=== PATIENT | female | born 1975 | race American Indian/Alaskan Native ===

== ENCOUNTER 2021-10-28 09:47 | Emergency (ER) | payer SELFPAY ==
[2021-10-28 09:53] VITALS: BP 168/67
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
[2021-10-28 11:43] LABS: Bacteria,Urine 1+ /HPF (Negative); Bilirubin,Urine NEG (Negative); Blood,Urine SM (Negative); Color,Urine Straw (Yellow); Protein,Urine <15 mg/dL mg/dL (Negative); Urobilinogen,Urine < 2.0 mg/dL (<2.0)
[2021-10-28] MEDS ORDERED: HYDROcodone/ACETAMINOPHEN 5-325 MG TAB PO ONE (11:50)
[2021-10-28 12:02] LABS: Basophils % (Auto) 0.8 % (0.0-1.8); Eosinophils # (Auto) 0.3 K/mm3 (0.0-0.4); Hematocrit 35.3 % (30.3-42.9); Hemoglobin 11.1 gm/dl (10.1-14.3); Lymphocytes % (Auto) 35.3 % (13.4-35.0); Mean Corpuscular HGB Conc 31 % (30-34); Mean Corpuscular Volume 88 fl (79-97); Monocytes # (Auto) 0.6 K/mm3 (0.0-0.8); Monocytes % (Auto) 10.9 % (0.0-7.3); Platelet Count 271 K/mm3 (140-440); Red Cell Distribution Width 19.3 % (13.2-15.2)
[2021-10-28 12:22] LABS: Alanine Aminotransferase 16 units/L (7-56); Albumin 3.8 g/dL (3.9-5); Blood Urea Nitrogen 14 mg/dL (7-17); Calcium 9.2 mg/dL (8.4-10.2); Hemolysis Index 2
[2021-10-28 12:28] LABS: BUN/Creatinine Ratio 20
== END 2021-10-28 13:00 | disposition home or self-care (01) ==
LOC: ED 09:47
DX: R20.2 Paresthesia of skin (principal); N39.0 Urinary tract infection, site not specified; M54.50 Low back pain, unspecified; J45.909 Unspecified asthma, uncomplicated; Z90.49 Acquired absence of other specified parts of digestive tract
CPT/HCPCS: 36415; 80053; 81001; 84703; 85025; 99283

== ENCOUNTER 2022-05-30 18:18 | Emergency (ER) | payer SELFPAY ==
[2022-05-30 18:49] VITALS: BP 159/97
[2022-05-30] MEDS ORDERED: IBUPROFEN 800 MG TAB PO ONE (20:29)
== END 2022-05-30 23:40 | disposition left against medical advice (07) ==
LOC: ED 18:18
DX: M79.605 Pain in left leg (principal); Z53.21 Procedure and treatment not carried out due to patient leaving prior to being seen by health care provider

== ENCOUNTER 2022-07-25 01:44 | Emergency (ER) | payer SELFPAY ==
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
[2022-07-25 03:42] LABS: Basophils # (Auto) 0.1 K/mm3 (0.0-0.1); Basophils % (Auto) 1.2 % (0.0-1.8); Eosinophils # (Auto) 0.3 K/mm3 (0.0-0.4); Eosinophils % (Auto) 4.6 % (0.0-4.3); Hematocrit 27.7 % (30.3-42.9); Hemoglobin 8.4 gm/dl (10.1-14.3); Lymphocytes # (Auto) 1.4 K/mm3 (1.2-5.4); Lymphocytes % (Auto) 21.8 % (13.4-35.0); Mean Corpuscular HGB Conc 30 % (30-34); Mean Corpuscular Volume 83 fl (79-97); Monocytes # (Auto) 0.7 K/mm3 (0.0-0.8); Monocytes % (Auto) 10.9 % (0.0-7.3); Platelet Count 401 K/mm3 (140-440); Red Blood Count 3.36 M/mm3 (3.65-5.03)
[2022-07-25 03:49] LABS: Red Cell Distribution Width 20.8 % (13.2-15.2)
[2022-07-25 03:52] LABS: INR 0.95 (0.87-1.13)
[2022-07-25 03:53] LABS: Partial Thromboplastin Time 33.2 Sec. (24.2-36.6)
[2022-07-25 03:56] LABS: Blood Urea Nitrogen 12 mg/dL (7-17); Calcium 9.6 mg/dL (8.4-10.2); Hemolysis Index 6
[2022-07-25 03:58] LABS: BUN/Creatinine Ratio 20
[2022-07-25] MEDS ORDERED: oxyCODONE /ACETAMINOPHEN 5-325MG TAB PO ONE ×2 (04:49→08:35)
[2022-07-25] MEDS ORDERED: SODIUM CHLORIDE 0.9% IRR 500 ML BOTTLE IR ONE (08:35)
[2022-07-25 08:49] VITALS: BP 120/72
[2022-07-25] MEDS ORDERED: SODIUM CHLORIDE 0.9% IRR 500 ML BOTTLE IR SCH (09:00)
== END 2022-07-25 09:35 | disposition home or self-care (01) ==
LOC: ED 01:44
DX: S81.832A Puncture wound without foreign body, left lower leg, initial encounter (principal); J45.909 Unspecified asthma, uncomplicated; Z90.49 Acquired absence of other specified parts of digestive tract; W34.09XA Accidental discharge from other specified firearms, initial encounter; Y93.89 Activity, other specified; Y92.89 Other specified places as the place of occurrence of the external cause; Y99.8 Other external cause status
CPT/HCPCS: 36415; 80048; 85025; 85610; 85730; 99283